=== PATIENT | female | born 1990 | race Caucasian/White ===

== ENCOUNTER 2017-07-05 12:12 | Outpatient (CLI) | payer OTHER | END 2017-07-05 14:25 | disposition home or self-care (01) | LOC: OBT 12:12 → L-D 12:14 → OBT 14:25 | DX: O41.93X0 Disorder of amniotic fluid and membranes, unspecified, third trimester, not applicable or unspecified (principal); Z3A.35 35 weeks gestation of pregnancy | CPT/HCPCS: 76818 ==

== ENCOUNTER 2017-07-08 17:08 | Inpatient (IN) | payer OTHER ==
[2017-07-08 18:14] LABS: ADD MAN DIFF? NO
[2017-07-08 18:20] LABS: BASOPHILS % 0.2 % (0.0-2.0); EOSINOPHILS # 0.1 10^3/ul (0.0-0.5); EOSINOPHILS % 0.7 % (0.0-7.0); HEMATOCRIT 38.8 % (37.0-47.0); HEMOGLOBIN 13.2 g/dl (12.0-16.0); LYMPHOCYTES % 24.4 % (15.0-51.0); MEAN CORPUSCULAR HEMOGLOBIN 31.4 pg (29.0-33.0); MEAN CORPUSCULAR VOLUME 92.4 fl (82.0-101.0); MEAN PLATELET VOLUME 10.9 fl (7.4-10.4); MONOCYTE # 0.6 10^3/ul (0.3-0.9); MONOCYTES % 6.9 % (0.0-11.0); NEUTROPHIL # 5.4 10^3/ul (1.6-7.5); NEUTROPHILS % 67.6 % (39.0-77.0); PLATELET COUNT 132 10^3/UL (140-415)
[2017-07-08 18:20] LABS: WHITE BLOOD COUNT 8.1 10^3/ul (4.8-10.8)
[2017-07-08 18:33] LABS: INR 0.93; PARTIAL THROMBOPLASTIN TIME 35.1 Sec (25.0-35.0); PROTIME 12.6 Sec (11.9-14.9)
[2017-07-08 18:35] LABS: ALANINE AMINOTRANSFERASE 34 IU/L (13-69); ALBUMIN 2.8 g/dl (3.3-4.9); ALBUMIN/GLOBULIN RATIO 0.84; ALKALINE PHOSPHATASE 174 IU/L (42-121); ANION GAP 9 (8-16); ASPARTATE AMINO TRANSFERASE 33 IU/L (15-46); BLOOD UREA NITROGEN 9 mg/dl (7-20); CALCIUM 8.7 mg/dl (8.4-10.2); CARBON DIOXIDE 22 mmol/L (21-31); CHLORIDE 107 mmol/L (97-110); CREATININE 0.69 mg/dl (0.44-1.00); GLUCOSE 73 mg/dl (70-220); POTASSIUM 4.4 mmol/L (3.5-5.1); SODIUM 134 mmol/L (135-144); TOTAL PROTEIN 6.1 g/dl (6.1-8.1); URIC ACID 6.3 mg/dl (3.1-7.9)
[2017-07-08 19:01] LABS: ADD UMIC YES; UR ASCORBIC ACID NEGATIVE (NEGATIVE); UR BACTERIA FEW /HPF (NONE SEEN); UR BILIRUBIN (Dip) NEGATIVE (NEGATIVE); UR BLOOD (Dip) NEGATIVE (NEGATIVE); UR CLARITY CLEAR (CLEAR); UR COLOR STRAW (YELLOW); UR GLUCOSE (Dip) NEGATIVE (NEGATIVE); UR KETONES (Dip) NEGATIVE (NEGATIVE); UR LEUKOCYTE ESTERASE (Dip) NEGATIVE Leu/ul (NEGATIVE); UR NITRITE (Dip) NEGATIVE (NEGATIVE); UR RBC 0 /HPF (0-5); UR SPECIFIC GRAVITY (Dip) 1.002 (1.003-1.030); UR SQUAMOUS EPITHELIAL CELL MANY /HPF (FEW); UR TOTAL PROTEIN (Dip) 1+ mg/dl (NEGATIVE); UR UROBILINOGEN (Dip) NEGATIVE (NEGATIVE); UR WBC 2 /HPF (0-5)
[2017-07-09 09:25] LABS: ADD MAN DIFF? NO
[2017-07-09 09:29] LABS: BASOPHILS % 0.2 % (0.0-2.0); EOSINOPHILS % 0.5 % (0.0-7.0); HEMATOCRIT 40.6 % (37.0-47.0); HEMOGLOBIN 13.9 g/dl (12.0-16.0); LYMPHOCYTES # 2.1 10^3/ul (0.8-2.9); LYMPHOCYTES % 26.3 % (15.0-51.0); MEAN CORPUSCULAR HEMOGLOBIN 32.1 pg (29.0-33.0); MEAN CORPUSCULAR HGB CONC 34.2 g/dl (32.0-37.0); MEAN CORPUSCULAR VOLUME 93.8 fl (82.0-101.0); MEAN PLATELET VOLUME 11.2 fl (7.4-10.4); MONOCYTE # 0.5 10^3/ul (0.3-0.9); MONOCYTES % 5.6 % (0.0-11.0); NEUTROPHIL # 5.3 10^3/ul (1.6-7.5); NEUTROPHILS % 66.8 % (39.0-77.0); PLATELET COUNT 137 10^3/UL (140-415); RED BLOOD COUNT 4.33 10^6/ul (4.20-5.40)
[2017-07-09] MEDS: PRENATAL VITAMIN PO (09:41)
[2017-07-09 10:00] LABS: ALANINE AMINOTRANSFERASE 38 IU/L (13-69); ALBUMIN 3.1 g/dl (3.3-4.9); ALKALINE PHOSPHATASE 191 IU/L (42-121); ANION GAP 13 (8-16); ASPARTATE AMINO TRANSFERASE 42 IU/L (15-46); BILIRUBIN,INDIRECT 0.2 mg/dl (0-1.1); BILIRUBIN,TOTAL 0.2 mg/dl (0.2-1.3); BLOOD UREA NITROGEN 8 mg/dl (7-20); CALCIUM 8.6 mg/dl (8.4-10.2); CARBON DIOXIDE 20 mmol/L (21-31); CHLORIDE 108 mmol/L (97-110); CREATININE 0.68 mg/dl (0.44-1.00); GLUCOSE 65 mg/dl (70-220); POTASSIUM 4.4 mmol/L (3.5-5.1); SODIUM 137 mmol/L (135-144); TOTAL PROTEIN 6.2 g/dl (6.1-8.1); URIC ACID 6.4 mg/dl (3.1-7.9)
[2017-07-09 10:09] LABS: ADD UMIC YES; UR ASCORBIC ACID NEGATIVE (NEGATIVE); UR BACTERIA FEW /HPF (NONE SEEN); UR BILIRUBIN (Dip) NEGATIVE (NEGATIVE); UR BLOOD (Dip) NEGATIVE (NEGATIVE); UR CLARITY CLEAR (CLEAR); UR COLOR STRAW (YELLOW); UR GLUCOSE (Dip) NEGATIVE (NEGATIVE); UR KETONES (Dip) NEGATIVE (NEGATIVE); UR LEUKOCYTE ESTERASE (Dip) NEGATIVE Leu/ul (NEGATIVE); UR NITRITE (Dip) NEGATIVE (NEGATIVE); UR RBC 0 /HPF (0-5); UR SPECIFIC GRAVITY (Dip) 1.006 (1.003-1.030); UR TOTAL PROTEIN (Dip) 2+ mg/dl (NEGATIVE); UR UROBILINOGEN (Dip) NEGATIVE (NEGATIVE); UR WBC 1 /HPF (0-5)
[2017-07-09 21:30] LABS: COLLECTION PERIOD 24 hrs; SCRET 0.68 mg/dl (0.44-1.00); VOLUME 2350 ml/24hrs
[2017-07-09 21:46] LABS: CREATININE CLEARANCE 99.5 mls/min (84.0-162.0); CREATININE,URINE RANDOM 41.47 mg/dl (20-320)
[2017-07-09 23:23] LABS: VOLUME 2350 mls
[2017-07-09 23:24] LABS: 24HR URINE TOTAL PROTEIN > 600.0 mg/24hrs (42.0-225.0); COLLECTION PERIOD 24 hrs
[2017-07-10] MEDS: PRENATAL VITAMIN PO (10:23)
[2017-07-11] MEDS: PRENATAL VITAMIN PO (09:20)
[2017-07-12] MEDS: PRENATAL VITAMIN PO (12:39)
[2017-07-13] MEDS: PRENATAL VITAMIN PO (10:36)
[2017-07-13] MEDS: LACTATED RINGER'S 1,000 ML IV (21:05)
[2017-07-13] MEDS: LACTATED RINGER'S 500 ML IV (21:05)
[2017-07-14] MEDS: ACETAMINOPHEN 325 MG TAB PO (00:09)
[2017-07-14] MEDS: LACTATED RINGER'S 1,000 ML IV ×3 (00:10→19:16)
[2017-07-14] MEDS: PRENATAL VITAMIN PO (09:52)
[2017-07-14] MEDS ORDERED: MISOPROSTOL 200 MCG TAB PR (18:00)
[2017-07-14] MEDS ORDERED: OXYTOCIN 30 UNITS/LR 500 ML IV (18:00)
[2017-07-14] MEDS ORDERED: BUTORPHANOL 2 MG INJ IV ×2 (18:00)
[2017-07-14] MEDS ORDERED: LIDOCAINE 1% (MPF) 30 ML INJ INJ (18:00)
[2017-07-14] MEDS ORDERED: CARBOPROST 250 MCG INJ IM (18:00)
[2017-07-14] MEDS ORDERED: METHYLERGONOVINE 0.2 MG INJ IM (18:00)
[2017-07-14 19:12] LABS: ADD MAN DIFF? NO
[2017-07-14 19:17] LABS: WHITE BLOOD COUNT 8.2 10^3/ul (4.8-10.8)
[2017-07-14 19:17] LABS: BASOPHILS % 0.4 % (0.0-2.0); EOSINOPHILS # 0.1 10^3/ul (0.0-0.5); HEMATOCRIT 38.8 % (37.0-47.0); HEMOGLOBIN 13.2 g/dl (12.0-16.0); LYMPHOCYTES # 2.1 10^3/ul (0.8-2.9); LYMPHOCYTES % 25.4 % (15.0-51.0); MEAN CORPUSCULAR HEMOGLOBIN 31.8 pg (29.0-33.0); MEAN CORPUSCULAR VOLUME 93.5 fl (82.0-101.0); MEAN PLATELET VOLUME 10.5 fl (7.4-10.4); MONOCYTE # 0.6 10^3/ul (0.3-0.9); MONOCYTES % 7.3 % (0.0-11.0); NEUTROPHIL # 5.4 10^3/ul (1.6-7.5); NEUTROPHILS % 65.4 % (39.0-77.0); PLATELET COUNT 137 10^3/UL (140-415); RED BLOOD COUNT 4.15 10^6/ul (4.20-5.40); RED CELL DISTRIBUTION WIDTH 13.2 % (11.5-14.5)
[2017-07-14] MEDS: DINOPROSTONE 10 MG VAG SUPP VAG (19:19)
[2017-07-14 19:30] LABS: PARTIAL THROMBOPLASTIN TIME 35.1 Sec (25.0-35.0)
[2017-07-14] MEDS ORDERED: LACTATED RINGER'S 1,000 ML IV (19:30)
[2017-07-14 19:31] LABS: INR 0.93; PROTIME 12.5 Sec (11.9-14.9)
[2017-07-14 19:32] LABS: ALANINE AMINOTRANSFERASE 37 IU/L (13-69); ALBUMIN 2.8 g/dl (3.3-4.9); ALBUMIN/GLOBULIN RATIO 0.84; ALKALINE PHOSPHATASE 179 IU/L (42-121); ANION GAP 8 (8-16); ASPARTATE AMINO TRANSFERASE 32 IU/L (15-46); BILIRUBIN,INDIRECT 0.1 mg/dl (0-1.1); BILIRUBIN,TOTAL 0.1 mg/dl (0.2-1.3); BLOOD UREA NITROGEN 8 mg/dl (7-20); CARBON DIOXIDE 24 mmol/L (21-31); CHLORIDE 108 mmol/L (97-110); CREATININE 0.65 mg/dl (0.44-1.00); GLUCOSE 78 mg/dl (70-220); SODIUM 135 mmol/L (135-144); TOTAL PROTEIN 6.1 g/dl (6.1-8.1); URIC ACID 6.2 mg/dl (3.1-7.9)
[2017-07-14 20:03] LABS: HEPATITIS B SURFACE ANTIGEN NEGATIVE (NEGATIVE)
[2017-07-14] MEDS: CLINDAMYCIN 900 MG/D5W (PMX) 50 ML IVPB (20:45)
[2017-07-14 22:37] LABS: RAPID PLASMA REAGIN NONREACTIVE (NR)
[2017-07-14] MEDS: LABETALOL 100 MG TAB PO (23:11)
[2017-07-15] MEDS: LACTATED RINGER'S 1,000 ML IV ×2 (00:30→01:22)
[2017-07-15] MEDS ORDERED: BUTORPHANOL 2 MG INJ IV (01:00)
[2017-07-15] MEDS ORDERED: IBUPROFEN 600 MG TAB PO (01:00)
[2017-07-15] MEDS ORDERED: FENTAnyl 2MCG/ML-ROPIV 0.2% 100 ML (01:31)
[2017-07-15] MEDS ORDERED: NALOXONE (0.4 MG/ML) INJ IV (02:00)
[2017-07-15] MEDS: CLINDAMYCIN 900 MG/D5W (PMX) 50 ML IVPB ×4 (05:33→23:26)
[2017-07-15] MEDS ORDERED: OXYTOCIN 30 UNITS/LR 500 ML IV (07:30)
[2017-07-15] MEDS: FENTAnyl 2MCG/ML-ROPIV 0.2% 100 ML BAG EPI (08:52)
[2017-07-15] MEDS: DEXTROSE 5%-LR 1,000 ML IV (09:01)
[2017-07-15] MEDS: OXYTOCIN 30 UNITS/LR 500 ML IV ×3 (11:15→16:53)
[2017-07-15 11:27] LABS: CBV Base Excess -5.4 mmol/L; CBV COHb 0.3 %; CBV Total Hemglobin 16.9 g/dl; Cord Blood Venous pO2 19.5 mmHG (15.0-45.0); Fraction OxyHgb Cord Venous 34.3 %; MODE ROOM AIR; MetHgb Cord Venous 1.7 %; Sample Type Blood venous; Site CORD
[2017-07-15] MEDS: ONDANSETRON 4 MG INJ IV (12:02)
[2017-07-15] MEDS ORDERED: OXYCODONE/ASPIRIN (4.88/325) TAB PO ×2 (15:00)
[2017-07-15] MEDS ORDERED: ONDANSETRON 4 MG INJ IV (15:00)
[2017-07-15] MEDS ORDERED: HYDROCODONE/APAP (5/325) TAB PO ×2 (15:00)
[2017-07-15] MEDS ORDERED: ACETAMINOPHEN 325 MG TAB PO (15:00)
[2017-07-15] MEDS ORDERED: LANOLIN 7 GM TUBE TOP (15:00)
[2017-07-15] MEDS: MAGNESIUM SULFATE 20 GM/500 ML 500 ML IV (16:54)
[2017-07-15] MEDS: BENZOCAINE 20% 56 ML SPRAY TOP (17:11)
[2017-07-15] MEDS: DIBUCAINE 1% 30 GM OINT PR (17:11)
[2017-07-15] MEDS: WITCH HAZEL/GLYCERIN PAD PR (17:11)
[2017-07-15] MEDS: IBUPROFEN 600 MG TAB PO ×2 (18:44→23:26)
[2017-07-15] MEDS: LABETALOL 100 MG TAB PO (18:45)
[2017-07-15 19:22] LABS: MAGNESIUM 3.3 mg/dl (1.7-2.5)
[2017-07-15] MEDS: SENNA/DOCUSATE NA (8.6MG/50MG) TAB PO (21:29)
[2017-07-16 01:11] LABS: MAGNESIUM 5.6 mg/dl (1.7-2.5)
[2017-07-16] MEDS: MAGNESIUM SULFATE 20 GM/500 ML 500 ML IV ×2 (03:00→12:30)
[2017-07-16] MEDS: LACTATED RINGER'S 1,000 ML IV (04:49)
[2017-07-16] MEDS: CLINDAMYCIN 900 MG/D5W (PMX) 50 ML IVPB ×4 (05:28→23:35)
[2017-07-16] MEDS: IBUPROFEN 600 MG TAB PO ×3 (05:30→17:39)
[2017-07-16 07:25] LABS: ADD MAN DIFF? NO
[2017-07-16 07:29] LABS: ABNORMAL IP MESSAGE 1; BASOPHILS % 0.3 % (0.0-2.0); EOSINOPHILS % 0.4 % (0.0-7.0); HEMATOCRIT 34.3 % (37.0-47.0); HEMOGLOBIN 11.6 g/dl (12.0-16.0); LYMPHOCYTES # 1.8 10^3/ul (0.8-2.9); LYMPHOCYTES % 19.3 % (15.0-51.0); MEAN CORPUSCULAR HEMOGLOBIN 31.7 pg (29.0-33.0); MEAN CORPUSCULAR HGB CONC 33.8 g/dl (32.0-37.0); MEAN CORPUSCULAR VOLUME 93.7 fl (82.0-101.0); MEAN PLATELET VOLUME 10.4 fl (7.4-10.4); MONOCYTE # 0.7 10^3/ul (0.3-0.9); MONOCYTES % 7.2 % (0.0-11.0); NEUTROPHIL # 6.7 10^3/ul (1.6-7.5); NEUTROPHILS % 72.3 % (39.0-77.0); PLATELET COUNT 91 10^3/UL (140-415); RED BLOOD COUNT 3.66 10^6/ul (4.20-5.40); RED CELL DISTRIBUTION WIDTH 13.4 % (11.5-14.5)
[2017-07-16 07:29] LABS: WHITE BLOOD COUNT 9.3 10^3/ul (4.8-10.8)
[2017-07-16 07:34] LABS: POSITIVE DIFF @See below
[2017-07-16 08:25] LABS: MAGNESIUM 5.9 mg/dl (1.7-2.5)
[2017-07-16] MEDS: LABETALOL 100 MG TAB PO ×4 (09:00→21:30)
[2017-07-16] MEDS: SENNA/DOCUSATE NA (8.6MG/50MG) TAB PO ×2 (09:30→21:29)
[2017-07-16 13:56] LABS: MAGNESIUM 6.8 mg/dl (1.7-2.5)
[2017-07-17] MEDS: CLINDAMYCIN 900 MG/D5W (PMX) 50 ML IVPB ×2 (05:31→12:00)
[2017-07-17] MEDS: IBUPROFEN 600 MG TAB PO ×4 (06:00→18:14)
[2017-07-17] MEDS: MEASLES,MUMPS,RUBELLA VACCINE INJ SC* (09:00)
[2017-07-17] MEDS: SENNA/DOCUSATE NA (8.6MG/50MG) TAB PO (09:30)
[2017-07-17] MEDS: LABETALOL 100 MG TAB PO ×2 (09:31→13:22)
[2017-07-17] MEDS: DIPHTH/TET/ACEL PERTUSS (ADULT) 0.5 ML VIAL IM* (15:54)
== END 2017-07-17 18:55 | disposition home or self-care (01) | DRG 775 ==
LOC: OBT 17:08 → L-D 07-14 17:30 → PP1 07-15 14:34 → L-D 17:09 → OBT 19:45 → PP1 19:45
PROC: 10E0XZZ Delivery of Products of Conception, External Approach (ICD-10-PCS; principal; 2017-07-15)
PROC: 0HQ9XZZ Repair Perineum Skin, External Approach (ICD-10-PCS; 2017-07-15)
DX: O14.04 Mild to moderate pre-eclampsia, complicating childbirth (principal); R50.9 Fever, unspecified; O70.0 First degree perineal laceration during delivery; Z37.0 Single live birth; Z3A.35 35 weeks gestation of pregnancy
CPT/HCPCS: 36415; 62319; 76815; 76818; 80053; 81001; 82575; 82803; 83735; 84156; 84560; 85025; 85384; 85610; 85730; 86592; 86900; 86901; 87340; 88307; 90715; 99464